=== PATIENT | female | born 1980 | race Native Hawaiian/Other Pacific Islander ===

== ENCOUNTER 2017-03-27 13:12 | Emergency (ER) | payer BC ==
[2017-03-27 13:25] VITALS: BP 82/50; PULSE 70; RESP 16; TEMP 98.5; O2SAT 100
--- NOTE | 2017-03-27 13:41 | ED PDOC ---
HPI: Female Pain Time Seen by Provider: 03/27/17 13:32 Chief Complaint (Nursing): Female Genitourinary Chief Complaint (Provider): Im and bleeding History Per: Patient History/Exam Limitations: no limitations Onset/Duration Of Symptoms: Hrs (~16) Quality Of Discomfort: Cramping Associated Symptoms: denies: Fever, Chills, Nausea, Vomiting, Diarrhea, Loss Of Appetite, Back Pain, Chest Pain Alleviating Factors: None Additional History Per: Patient Additional Complaint(s): 36yo F (3 prior spont miscarriages) presents c/o vaginal spotting and cramping since last night around 9pm. Denies weakness/dizziness, back pain or syncope. Denies hx previous ectopic . Has appt upcoming for but no US or care to date. LMP February 20 Meds: vits Abnormal Vaginal Bleeding: Yes Past Medical History Reviewed: Historical Data, Nursing Documentation, Vital Signs Vital Signs: Last Vital Signs Temp 98.5 F 03/27/17 13:21 Pulse 70 03/27/17 13:21 Resp 16 03/27/17 13:21 BP 82/50 L 03/27/17 13:21 Pulse Ox 100 03/27/17 13:21 - Medical History PMH: No Chronic Diseases - Surgical History Surgical History: No Surg Hx - Family History Family History: States: Unknown Family Hx - Living Arrangements Living Arrangements: With Family - Social History Current smoker - smoking cessation education provided: No Alcohol: None - Home Medications Home Medications: Ambulatory Orders Medication Instructions Recorded Ferrous Sulfate 325 mg PO TID #100 tab 09/01/14 Misoprostol [Cytotec] 800 mcg PO Q12 #8 tab 02/21/15 - Allergies Allergies/Adverse Reactions: Allergies Allergy/AdvReac Type Severity Reaction Status Date / Time No Known Allergies Allergy Verified 03/27/17 13:21 Review of Systems ROS Statement: Except As Marked, All Systems Reviewed And Found Negative Constitutional: Negative for: Fever, Chills Eyes: Negative for: Vision Change ENT: Negative for: Nose Pain Cardiovascular: Negative for: Chest Pain, Palpitations Respiratory: Negative for: Cough, Hemoptysis Gastrointestinal: Negative for: Nausea, Vomiting Genitourinary Female: Positive for: Vaginal Bleeding, Pelvic Pain. Negative for : Dysuria, Frequency Skin: Negative for: Rash, Lesions, Jaundice Neurological: Negative for: Weakness, Numbness, Dizziness Psych: Negative for: Depression Physical Exam - Reviewed Nursing Documentation Reviewed: Yes Vital Signs Reviewed: Yes - Physical Exam Appears: Positive for: Well, Non-toxic, No Acute Distress Head Exam: Positive for: ATRAUMATIC, NORMAL INSPECTION, NORMOCEPHALIC Skin: Positive for: Normal Color, Warm, DRY Eye Exam: Positive for: EOMI, Normal appearance, PERRL ENT: Positive for: Normal ENT Inspection Neck: Positive for: Normal, Painless ROM Cardiovascular/Chest: Positive for: Regular Rate, Rhythm Respiratory: Positive for: CNT, Normal Breath Sounds Gastrointestinal/Abdominal: Positive for: Normal Exam, Bowel Sounds, Soft. Negative for: Tenderness, Guarding Back: Positive for: Normal Inspection Extremity: Positive for: Normal ROM Neurologic/Psych: Positive for: Alert, Oriented. Negative for: Motor/Sensory Deficits - Laboratory Results Result Diagrams: 03/27/17 13:47 03/27/17 13:47 - ECG O2 Sat by Pulse Oximetry: 100 Medical Decision Making Medical Decision Making: Workup initiated for early w bleeding/ cramping, r/o ectopic preg vs threatened vs spontaneous vs incomplete vs other. labs reviewed BHCG very low Mild anemia, pt states takes iron infusions via Dr Little, she states last known Hgb 11.8 thus no significant blood loss. US reveals gest sac but out of range and no YS/FP/FHR. Likely spont but needs followup w OBGYN 3-4 days. Given recurrent miscarriage to discuss w [employer] risk factors and further testing. Return to ER for any weakness, bleeding >3pads/ hr or any concern. Disposition - Clinical Impression Clinical Impression: Threatened - Patient ED Disposition Is Patient to be Admitted: No Counseled Patient/Family Regarding: Studies Performed, Diagnosis, Need For Followup - Disposition Referrals: Kirti Graham MD [Family Provider] - Disposition: Routine/Home Disposition Time: 15:30 Condition: STABLE Additional Instructions: Followup with Dr Graham in office in next several days. Recommend pelvic rest. Instructions: Threatened Miscarriage (ED) Forms: [employer] (Liberian)
[2017-03-27 14:05] LABS: BASO % 0.4 % (0.0-2.0); EOS # 0.2 K/uL (0.0-0.7); EOS % 2.5 % (0.0-4.0); HEMATOCRIT 35.4 % (34.0-47.0); LYMPH # 2.6 K/uL (1.0-4.3); LYMPH % 27.9 % (20.0-40.0); MEAN CORPUSCULAR HEMOGLOBIN 23.3 pg (27.0-31.0); MEAN CORPUSCULAR HGB CONC 31.5 g/dL (33.0-37.0); MEAN PLATELET VOLUME 8.9 fl (7.2-11.7); MONO # 0.6 K/uL (0.0-0.8); NEUT # 5.7 K/uL (1.8-7.0); NEUT % 62.2 % (50.0-75.0); RED CELL DISTRIBUTION WIDTH 14.1 % (11.5-14.5); WHITE BLOOD COUNT 9.1 K/uL (4.8-10.8)
[2017-03-27 14:11] LABS: ALB/GLOB RATIO 1.5 (1.0-2.1); ALKALINE PHOSPHATASE 42 U/L (38-126); ALT/SGPT 86 U/L (9-52); AST/SGOT 64 U/L (14-36); BILIRUBIN,TOTAL < 0.1 mg/dl (0.2-1.3); BLOOD UREA NITROGEN 5 mg/dl (7-17); CALCIUM 8.3 mg/dL (8.4-10.2); CARBON DIOXIDE 25 mmol/L (22-30); CHLORIDE 108 mmol/L (98-107); GFR AFRICAN-AMERICAN > 60; GLUCOSE,RANDOM 103 mg/dL (65-105); POTASSIUM 3.6 MMOL/L (3.6-5.0); SODIUM 142 mmol/l (132-148); TOTAL PROTEIN 6.6 G/DL (6.3-8.2)
[2017-03-27 14:16] LABS: RBC URINE 11 /hpf (0-3); URINE BILIRUBIN NEGATIVE (NEGATIVE); URINE BLOOD MODERATE (NEGATIVE); URINE CALCIUM OXALATE CRYSTALS MOD /hpf (<OCC); URINE COLOR YELLOW (YELLOW); URINE GLUCOSE (UA) NEG (Normal); URINE KETONE NEGATIVE (NEGATIVE); URINE LEUKOCYTE ESTERASE NEG Leu/uL (Negative); URINE PROTEIN NEGATIVE (NEGATIVE); URINE UROBILINOGEN 0.2-1.0 mg/dL (0.2-1.0); WBC URINE 4 /hpf (0-5)
--- NOTE | 2017-03-27 15:47 | US ---
HISTORY: 5 wks , bleeding cramping COMPARISON: None available. TECHNIQUE: Endovaginal ultrasound examination of the uterus and pelvis was obtained. FINDINGS: UTERUS: Measures 7.5 x 4.9 x 3.2 cm. Normal in size and appearance. No fibroid or other mass lesion seen. ENDOMETRIUM: Measures 7.3 mm in diameter. Unremarkable. CERVIX: No cervical abnormality identified. RIGHT OVARY: Measures 2.4 x 2.4 x 1.8 cm. Prominent follicles are seen measures each less than 1 centimeter . No solid mass. Normal flow. LEFT OVARY: Measures 2.1 x 2.4 x 2.1 cm. No solid mass. Normal flow. FREE FLUID: No significant free fluid noted. OTHER FINDINGS: None. IMPRESSION: No evidence of intrauterine . Endometrial stripe measures 7.3 millimeter. Prominent follicles at the right ovary.
== END 2017-03-27 16:10 | disposition home or self-care (01) ==
LOC: H.ER 13:12
DX: O20.0 Threatened abortion (principal)

== ENCOUNTER 2018-03-25 13:46 | Emergency (ER) | payer BC ==
[2018-03-25 14:29] VITALS: BMI 20.9
[2018-03-25] MEDS: Betamethasone Soluspan 30 mg/5mL Inj Susp IM ONE (16:00)
[2018-03-25 20:38] VITALS: BP 98/64; PULSE 81; RESP 18; TEMP 98.6; O2SAT 99
== END 2018-03-25 16:15 | disposition home or self-care (01) ==
LOC: H.EROB2 13:46
DX: O44.03 Complete placenta previa NOS or without hemorrhage, third trimester (principal); Z3A.36 36 weeks gestation of pregnancy; Z23 Encounter for immunization
CPT/HCPCS: 96372; 99281; J0702

== ENCOUNTER 2018-03-26 08:29 | Inpatient (IN) | payer BC ==
[2018-03-25 14:29] VITALS: BMI 20.9
[2018-03-26] MEDS ORDERED: ceFAZolin IV 2 gm in Dextrose 2 GM/50 ML BAG IVPB ONE (08:40)
[2018-03-26] MEDS ORDERED: Oxytocin 30 units/LR 500ML 30 U/500 ML BAG IV SCH (08:45)
[2018-03-26] MEDS: Lactated Ringer's 1,000 ML IV SCH ×2 (08:50→09:55)
[2018-03-26] MEDS ORDERED: Betamethasone Soluspan 30 mg/5mL Inj Susp IM ONE (09:17)
[2018-03-26 09:23] LABS: BASO % 0.4 % (0.0-2.0); EOS % 0.1 % (0.0-4.0); HEMOGLOBIN 11.7 g/dL (12.0-16.0); LYMPH # 1.4 K/uL (1.0-4.3); LYMPH % 11.9 % (20.0-40.0); MEAN CELL VOLUME 76.2 fl (81.0-99.0); MEAN CORPUSCULAR HEMOGLOBIN 24.2 pg (27.0-31.0); MEAN CORPUSCULAR HGB CONC 31.8 g/dL (33.0-37.0); MEAN PLATELET VOLUME 9.5 fl (7.2-11.7); MONO # 0.5 K/uL (0.0-0.8); MONO % 4.4 % (0.0-10.0); NEUT # 9.7 K/uL (1.8-7.0); NEUT % 83.2 % (50.0-75.0); NRBC % 0.1 % (0.0-0.0); RBC 4.84 Mil/uL (3.80-5.20); RED CELL DISTRIBUTION WIDTH 13.9 % (11.5-14.5); WHITE BLOOD COUNT 11.7 K/uL (4.8-10.8)
[2018-03-26] MEDS ORDERED: Lactated Ringer's 1,000 ML IV SCH ×2 (10:30→16:12)
[2018-03-26] MEDS ORDERED: ePHEDrine 50 mg/ml Inj ONE (12:02)
[2018-03-26] MEDS ORDERED: Morphine 1 mg/ml preservative-free Inj(Duramorph) ONE (12:03)
[2018-03-26] MEDS ORDERED: DiphenhydrAMINE 50 mg/ml Inj IVP PRN ×2 (13:28→16:12)
[2018-03-26 14:28] VITALS: RESP 18; TEMP 97.7; O2SAT 100
[2018-03-26] MEDS ORDERED: Bisacodyl 5mg EC Tab PO PRN ×2 (15:16→16:12)
[2018-03-26] MEDS ORDERED: Oxycodone/Acetaminophen 5/325 mg Tab PO PRN ×2 (15:20→16:12)
[2018-03-26] MEDS ORDERED: Simethicone 80 mg Chewtab PO SCH (16:00)
[2018-03-26] MEDS: Simethicone 80 mg Chewtab PO SCH (22:25)
[2018-03-27] MEDS: Simethicone 80 mg Chewtab PO SCH ×4 (05:56→21:10)
[2018-03-27 07:40] LABS: HEMOGLOBIN 11.1 g/dL (12.0-16.0); MEAN CELL VOLUME 76.8 fl (81.0-99.0); MEAN CORPUSCULAR HEMOGLOBIN 24.3 pg (27.0-31.0); MEAN CORPUSCULAR HGB CONC 31.7 g/dL (33.0-37.0); RBC 4.56 Mil/uL (3.80-5.20); RED CELL DISTRIBUTION WIDTH 14.2 % (11.5-14.5); WHITE BLOOD COUNT 16.3 K/uL (4.8-10.8)
[2018-03-27] MEDS: Multivitamin With Minerals Tab PO SCH (08:39)
[2018-03-27] MEDS ORDERED: Multivitamin With Minerals Tab PO SCH (09:00)
--- NOTE | 2018-03-27 11:32 | OBPPN ---
Datetime: 03/27/2018 11:30 PP Pain Prov: Within normal limits PP Nausea Prov: Denies PP Flatus Prov: Yes PP Breasts Prov: Normal PP Heart Prov: Normal PP Lungs Prov: Normal PP Abdomen/Uterus Prov: Normal PP Lochia Prov: Normal PP Vulva/Perineum Prov: Normal PP CVA Tenderness Prov: Normal PP Extremities Prov: Normal PP Comments Phys Exam Prov: Fundus firm under umbilicus PP Impression Prov: Normal progression PP Plan Prov: Continue present management PP Progress Note Prov: Patient denies CP, no SOB, no N/V, tolerating PO diet, ambulating/voiding wel l, mild lochia, abdominal pain tolerable with meds A/P POD #1 1. Continue post orders 2. Reg diet 3. Percocet/Motrin prn pain 4. Encourage ambulation/ IP PP Procedures: None Vital Signs Provider PP: Reviewed; Within Normal Limits
[2018-03-28] MEDS: Simethicone 80 mg Chewtab PO SCH ×3 (06:00→16:13)
[2018-03-28] MEDS: Multivitamin With Minerals Tab PO SCH (08:04)
--- NOTE | 2018-03-28 11:40 | OBPPN ---
Datetime: 03/28/2018 11:34 PP Pain Prov: Within normal limits PP Nausea Prov: Denies PP Flatus Prov: No PP BM Prov: No PP Breasts Prov: Normal PP Heart Prov: Normal PP Lungs Prov: Normal PP Abdomen/Uterus Prov: Normal PP Lochia Prov: Normal PP Vulva/Perineum Prov: Normal PP CVA Tenderness Prov: Normal PP Extremities Prov: Normal PP C/S Incision Prov: Normal PP Comments Phys Exam Prov: Incision clean, dry, intact Abdomen soft, nontender, nondistended No deep calf tenderness bilaterally PP Progress Note Prov: Postop day #2 status post , patient recovering well Pain control Regular diet Colace, simethicone Patient out of bed and ambulating Continue current management Vital Signs Provider PP: Reviewed; Within Normal Limits
--- NOTE | 2018-03-29 07:35 | OP ---
PROCEDURE DATE: 03/26/18 PREOPERATIVE DIAGNOSES: Intrauterine at 37 weeks, placenta previa. POSTOPERATIVE DIAGNOSES: Intrauterine at 37 weeks, placenta previa. OPERATION PERFORMED: Primary low flap transverse section by a Pfannenstiel skin incision. SURGEON: Kenton Horne MD. DIVISION CHIEF: Dr. Kirti Graham. She was helpful in obtaining hemostasis, delivery of the infant, closure of the patient, and the procedure would not have been possible without her assistance. TYPE OF ANESTHESIA: Spinal. ANESTHESIA ADMINISTERED BY: Sina Caldwell MD. ESTIMATED BLOOD LOSS: 800 mL. URINE OUTPUT: The patient put out approximately 200 mL of clear urine. INTRAVENOUS FLUID INTAKE: The patient received approximately 1 liter of D5 LR intraoperatively. OPERATIVE FINDINGS: Baby girl, vertex presentation, weighing 2680 gm, Apgars 9 and 9, normal uterus, tubes, and ovaries were identified. DESCRIPTION OF PROCEDURE: After informed consent was obtained, the patient was taken to the operating room where she was given spinal anesthesia. She was then prepped and draped in a normal sterile fashion with a leftward tilt. A Pfannenstiel skin incision was then made with a scalpel and carried down to the underlying layer of fascia. The fascia was nicked in the midline. The fascial incision was then extended laterally with a curved Wong scissors. The superior aspect of the fascial incision was then grasped with Bhavya clamps, elevated up, and the rectus muscles were dissected off using both sharp and blunt dissection. Attention was then turned to the inferior aspect of the fascial incision, which in a similar fashion, was grasped with a Bhavya clamps, elevated up, and the rectus muscles were dissected off using both sharp and blunt dissection. The rectus muscles were then in the midline. The peritoneum identified and entered sharply with the Metzenbaum scissors. The peritoneal incision was then extended superiorly and inferiorly with good visualization of the bowel and bladder. The bladder blade was then inserted. The vesicouterine peritoneum was identified and entered sharply with the Metzenbaum scissors. The incision was then extended laterally, the bladder flap was created digitally. The bladder blade was then readjusted and a low transverse incision was made with a scalpel. The incision was then extended laterally. The infant's head was delivered atraumatically. There was a loose nuchal cord. Nose and mouth were suctioned with DeLee suction trap. The cord was clamped and cut. The infant was handed off to awaiting pediatricians. The placenta was then removed manually. The uterus was exteriorized and cleared off all clots and debris. The uterine incision was repaired with 0 Vicryl in a running locked fashion. A second layer of the same suture was used to obtain excellent hemostasis. The bladder flap was then closed using 2-0 Vicryl in a running fashion. The uterus was returned to the abdomen. The abdomen was then copiously irrigated. The gutters were cleared of all clots and debris. Hemostasis was noted. The peritoneum was then closed with 2-0 Vicryl in a running fashion. The muscle was reapproximated with 0 Vicryl in an interrupted fashion. The fascia was closed with 0 Vicryl in a running fashion. The skin was closed with 3-0 on a Bernard needle. All sponge, lap, needle and instrument counts were correct x2, and the patient was taken to the recovery room in awake and stable condition. Kenton Horne MD
--- NOTE | 2018-03-29 07:57 | OBPPN ---
Datetime: 03/29/2018 07:53 PP Pain Prov: Within normal limits PP Nausea Prov: Denies PP Flatus Prov: Yes PP BM Prov: No PP Abdomen/Uterus Prov: Normal PP Lochia Prov: Normal PP Extremities Prov: Normal PP Comments Phys Exam Prov: Incision: intact w/ steri strips PP Impression Prov: Normal progression PP Plan Prov: Discharge PP Progress Note Prov: POD 3 s/p c/s at 36+ wks for previa, c/o RAMIREZ and feeling gassy this am, wants to go home. Rx's motrin and percocet given Discharge home today Vital Signs Provider PP: Reviewed
--- NOTE | 2018-03-29 07:57 | OBDCSUM ---
Datetime: 03/29/2018 07:55 Discharged to, Provider: Home Follow up at, Provider: Dr. Horne Disch Instr Activity: Normal activity; May Shower Disch Instr Diet: Regular Discharge Instructions, Provider: Routine instructions given Discharge Diagnosis, Provider: Delivery Discharge Time: 03/29/2018 07:55 Follow up in weeks, Provider: 1 week Contraception discussed, Prov: No Disch Activity Restrictions: No exercising; No lifting; No driving; No sexual activity; Nothing in v agina - [place], tampons, douche
[2018-03-29] MEDS: Simethicone 80 mg Chewtab PO SCH (10:13)
[2018-03-29] MEDS: Multivitamin With Minerals Tab PO SCH (10:13)
[2018-03-29 17:55] VITALS: BP 95/63; PULSE 85
== END 2018-03-29 13:10 | disposition home or self-care (01) | DRG 765 ==
LOC: H.EROB2 08:29 → H.L&D 08:38 → H.OB/GYN 15:53
PROVIDERS: ADMIT Obstetrics & Gynecology Gynecology; ATTEND Obstetrics & Gynecology Gynecology
PROC: 10D00Z1 Extraction of Products of Conception, Low, Open Approach (ICD-10-PCS; principal; 2018-03-26)
PROC: 4A1HXCZ Monitoring of Products of Conception, Cardiac Rate, External Approach (ICD-10-PCS; 2018-03-26)
DX: O60.14X0 Preterm labor third trimester with preterm delivery third trimester, not applicable or unspecified (principal); O44.03 Complete placenta previa NOS or without hemorrhage, third trimester; Z37.0 Single live birth; Z3A.37 37 weeks gestation of pregnancy; O09.523 Supervision of elderly multigravida, third trimester